=== PATIENT | male | born 2000 | race Caucasian/White ===

== ENCOUNTER 2021-03-27 21:53 | Emergency (ER) | payer OTHER ==
[2021-03-27] MEDS ORDERED: Ketorolac Tromethamine 30 MG/ML VIAL ONE (23:06)
== END 2021-03-28 00:05 | disposition home or self-care (01) ==
LOC: ERS 21:53
DX: S70.01XA Contusion of right hip, initial encounter (principal); M25.532 Pain in left wrist; W19.XXXA Unspecified fall, initial encounter; Y93.67 Activity, basketball
CPT/HCPCS: 29125; 72192; 96372; J1885

== ENCOUNTER 2022-08-28 11:30 | Day surgery (SDC) | payer OTHER ==
[2022-08-26 10:52] VITALS: BMI 26.2
[2022-08-28] MEDS ORDERED: Bupivacaine 0.25% HCL 30 ML VIAL ONE (13:39)
[2022-08-28] MEDS ORDERED: Lidocaine 1% (PF) 30 ML VIAL ONE (13:40)
[2022-08-28] MEDS ORDERED: EPINEPHrine 1 MG/ML AMP ONE (13:41)
[2022-08-28] MEDS ORDERED: Dexmedetomidine 200 MCG/2 ML VIAL ONE (13:46)
[2022-08-28] MEDS ORDERED: Sodium Chloride 0.9% 100 ML ONE (13:47)
[2022-08-28] MEDS ORDERED: fentaNYL Citrate/PF 100 MCG/2 ML SYRINGE ONE (13:47)
[2022-08-28] MEDS ORDERED: CEFAZOLIN 2 GM VIAL ONE (13:47)
[2022-08-28] MEDS ORDERED: Ondansetron PF 4 MG/2 ML Vial ONE ×3 (13:55→16:21)
[2022-08-28] MEDS ORDERED: PROPOFOL 200 MG/20 ML VIAL ONE (13:55)
[2022-08-28] MEDS ORDERED: Lidocaine 1% PF 5 ML VIAL ONE (13:55)
== END 2022-08-28 16:45 | disposition home or self-care (01) ==
LOC: SDC 11:30
PROVIDERS: ATTEND Surgery Surgery of the Hand
PROC: 0PST04Z Reposition Right Finger Phalanx with Internal Fixation Device, Open Approach (ICD-10-PCS; principal; 2022-08-28)
DX: S62.616A Displaced fracture of proximal phalanx of right little finger, initial encounter for closed fracture (principal); X58.XXXA Exposure to other specified factors, initial encounter; Y93.61 Activity, american tackle football
CPT/HCPCS: 76000; C1713; J0171; J0690; J2001; J2405; J2704; J3490; S0020